=== PATIENT | male | born 1975 | race Caucasian/White ===

== ENCOUNTER 2017-05-13 18:55 | Emergency (ER) | payer OTHER ==
[~2017-05-13] VITALS: Ht 182.9 cm; Wt 105.0 kg
[2017-05-13] MEDS ORDERED: OMEP40CA6 PO (19:29)
[2017-05-13] MEDS ORDERED: MONT10TA9 PO (19:30)
[2017-05-13] MEDS ORDERED: MINO100C PO (19:31)
[2017-05-13 19:59] LABS: HEMATOCRIT 51.7 % (39.2-51.8); HEMOGLOBIN 17.4 g/dL (13.7-18.0); WHITE BLOOD COUNT 7.5 x10^3/uL (3.4-10)
[2017-05-13 20:07] LABS: BLOOD UREA NITROGEN 28 mg/dL (7-18)
[2017-05-13 20:14] LABS: IS PT STATUS REG ER OR PRE ER? YES
[2017-05-13 22:11] VITALS: BP 144/76
== END 2017-05-13 22:19 | disposition home or self-care (01) ==
LOC: ED 22:11
DX: M54.12 Radiculopathy, cervical region (principal); R94.4 Abnormal results of kidney function studies; K21.9 Gastro-esophageal reflux disease without esophagitis
CPT/HCPCS: 36415; 72125; 80048; 82040; 84484; 85025; 93005; 99285; J7512

== ENCOUNTER 2017-10-13 15:54 | Emergency (ER) | payer OTHER ==
[~2017-10-13] VITALS: Ht 182.9 cm; Wt 102.0 kg
[~2017-10-13 15:54] MED LIST: MINO100C PO; MONT10TA9 PO; OMEP40CA6 PO
[2017-10-13] MEDS ORDERED: KETOROLAC 30 MG/1 ML IM ONE (16:30)
[2017-10-13] MEDS ORDERED: OXYcodone/APAP 10/325MG TABLET PO ONE (16:30)
[2017-10-13] MEDS ORDERED: KETOROLAC 30 MG/1 ML ONE (16:36)
[2017-10-13] MEDS ORDERED: OXYcodone/APAP 10/325MG TABLET ONE (16:37)
[2017-10-13 18:51] VITALS: BP 107/61
== END 2017-10-13 18:52 | disposition home or self-care (01) ==
LOC: ED 18:00
DX: R10.33 Periumbilical pain (principal); K21.9 Gastro-esophageal reflux disease without esophagitis; Z90.49 Acquired absence of other specified parts of digestive tract
CPT/HCPCS: 74176; 96372; 99284; J1885